=== PATIENT | female | born 1995 | race Caucasian/White ===

== ENCOUNTER 2018-09-25 21:34 | Emergency (ER) | payer MEDICAID ==
[~2018-09-25] VITALS: Ht 172.7 cm; Wt 90.7 kg
[2018-09-25 21:39] VITALS: BP_SYST 125
--- NOTE | 2018-09-25 21:44 | NUR ---
Patient triaged and placed in waiting room. VSS and patient appears in no acute distress at this time. Accompanied by self, awaiting available bed, and MD notified of need for MSE.
--- NOTE | 2018-09-25 21:54 | NUR ---
Patient to ER bed 02 for evaluation. Side rails up. Report given to []. Addendum: 09/25/18 at 2154 by [email or web address] Report given to Emre BERRY
--- NOTE | 2018-09-25 22:18 | NUR ---
Zhang morfin in ED - 09/25/18 at 2221 by [facility] ANDREAS Olivia at bedside examining patient.
--- NOTE | 2018-09-25 22:18 | NUR ---
ER Dr. Olivia at bedside examining patient.
--- NOTE | 2018-09-25 22:20 | NUR ---
Pt C/O of back pain x 1 month new onset of radiating to the right flank and tingling to the upper and lower extremities. 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 Has rx for Baclofen and took PRN dose with no relief. Vital signs are stable, will continue to monitor.
--- NOTE | 2018-09-25 22:40 | NUR ---
Patient given written and verbal discharge instructions and verbalizes understanding. ER MD discussed with patient the results and treatment provided. Patient in stable condition. ID arm band removed. Rx of Ultram given. Patient educated on pain management and to follow up with PMD. Pain Scale 0/10. Opportunity for questions provided and answered. Medication side effect fact sheet provided.
[2018-09-25 22:41] VITALS: BP_SYST 125
== END 2018-09-25 22:41 | disposition home or self-care (01) ==
LOC: SED 21:34
DX: M54.5 Low back pain (principal)
CPT/HCPCS: 99283

== ENCOUNTER 2018-10-04 22:29 | Emergency (ER) | payer MEDICAID ==
[~2018-10-04] VITALS: Ht 172.7 cm; Wt 91.6 kg
[2018-10-04 22:35] VITALS: BP_SYST 119
[2018-10-04] MEDS ORDERED: AMOXICILLIN 500 MG CAPSULE PO ONE (22:45)
[2018-10-04] MEDS ORDERED: IBUPROFEN 600 MG TABLET PO ONE (22:45)
== END 2018-10-04 22:53 | disposition home or self-care (01) ==
LOC: SED 22:29
DX: J02.0 Streptococcal pharyngitis (principal)
CPT/HCPCS: 99283

== ENCOUNTER 2020-05-17 23:41 | Emergency (ER) | payer MEDICAID ==
[~2020-05-17] VITALS: Ht 172.7 cm; Wt 108.9 kg
[2020-05-17 23:45] VITALS: BP_SYST 130
[2020-05-18 00:41] VITALS: BP_SYST 130
== END 2020-05-18 00:41 | disposition home or self-care (01) ==
LOC: SED 23:41
DX: B35.4 Tinea corporis (principal)
CPT/HCPCS: 99283

== ENCOUNTER 2021-12-01 21:17 | Emergency (ER) | payer MEDICAID ==
[~2021-12-01] VITALS: Ht 172.7 cm; Wt 96.6 kg
[2021-12-01 21:24] VITALS: BP_SYST 132
--- NOTE | 2021-12-01 21:41 | NUR ---
PT HERE C/O POSSIBLE ALLERGIC REACTION AFTER EATING NON ORGANIC AVOCADO, PT STATED THAT SHE ATE AVOCADO AT 2030 AND SHE NOTICED THAT HER TONGUE FEELS LIKE THERES BUMP AND LOWER ABD PAIN WITH NAUSEA STARTED. PT DENIES SOB, DENIES V/D. PMh:DENIES PT AAOX4, SPEAKING IN FULL SENTENCES, NO RASH,HIVES AND REDNESS NOTED, NO TOUNGE SWELLING AND NO BLISTER NOTED ON ASSESSMENT.
[2021-12-01] MEDS ORDERED: DIPHENHYDRAMINE INJ 50 MG/ML VIAL IVP ONE (23:00)
[2021-12-01] MEDS ORDERED: NACL 0.9% 1,000 ML IV ONE (23:00)
[2021-12-01] MEDS ORDERED: ONDANSETRON HCL 4 MG/2 ML VIAL IVP ONE (23:00)
[2021-12-01] MEDS ORDERED: EPINEPHrine HCL 1 MG/ML VIAL IM ONE (23:00)
[2021-12-01] MEDS ORDERED: predniSONE 20 MG TABLET PO ONE (23:00)
--- NOTE | 2021-12-01 23:00 | NUR ---
Patient to ER bed 2 to gown for evaluation. Side rails up. Report given to TESHA BERRY(reg).
[2021-12-01] MEDS ORDERED: EPINEPHRINE HCL/PF 1 MG/ML AMP ONE (23:34)
[2021-12-02] MEDS ORDERED: DIPH25CA83 PO (00:27)
[2021-12-02] MEDS ORDERED: EPIN0.1519 IM (00:27)
[2021-12-02] MEDS ORDERED: PRED20TA PO (00:27)
[2021-12-02 00:38] VITALS: BP_SYST 105
--- NOTE | 2021-12-02 00:38 | NUR ---
PT DC IN STABLE CONDITION. AAOX4. VITALS ARE WNL. PER DR BRIGGS PT IS OKAY TO GO HOME. PT AMBULATED WITH STEADY GAIT.
== END 2021-12-02 00:38 | disposition home or self-care (01) ==
LOC: SED 21:17
DX: T78.40XA Allergy, unspecified, initial encounter (principal); R13.10 Dysphagia, unspecified; R19.7 Diarrhea, unspecified; R11.0 Nausea; Z79.899 Other long term (current) drug therapy; X58.XXXA Exposure to other specified factors, initial encounter
CPT/HCPCS: 99284; 96365; 96375; 96372; J7512; J1200; J0171; J2405